=== PATIENT | female | born 1950 | race Caucasian/White ===

== ENCOUNTER → 2017-07-27 | Outpatient (CLI) | payer BC ==
[~2017-07-27] MED LIST: ASPI81TA28 PO; CALC600T14 PO; CHOL1000 PO; COEN1CAP17 PO; FISHOIL PO; REDCAP2 PO; curcumin; herbal supplement; juice plus
--- NOTE | 2017-07-27 10:53 | DIAGNOSTIC IMAGING REPORT ---
L ANKLE MIN 3 VIEWS ROUTINE CLINICAL HISTORY: 66 years-old Female presenting with S99.912A left ankle pain, fall 2 days ago. TECHNIQUE: Frontal, mortise, and lateral views of the left ankle were obtained. COMPARISON: None. FINDINGS: Ankle mortise intact. Obliquely oriented fracture of the distal fibular metaphysis at the level of the syndesmosis extending from the posterior lateral cortex proximally to the anterior medial cortex distally. There is 2 mm of diastases at the fracture plane. No convincing evidence of widening of the syndesmosis. No posterior malleolus are or medial malleoli fracture. Extensive soft tissue swelling most pronounced along the lateral malleolus. IMPRESSION: Findings consistent with Wallace B fibular fracture (stage II supination external rotation injury). Electronically signed by: Moe Caban M.D. 07/27/2017 10:52 AM Dictated Date/Time: 07/27/2017 10:49 AM
== END | disposition home or self-care (01) ==
LOC: C.RAD 09:58
PROVIDERS: ATTEND Nurse Practitioner
DX: S99.912A Unspecified injury of left ankle, initial encounter (principal); X58.XXXA Exposure to other specified factors, initial encounter

== ENCOUNTER → 2017-07-27 | Outpatient (CLI) | payer BC | END | disposition home or self-care (01) | LOC: C.RDSM 17:32 | PROVIDERS: ATTEND Physical Medicine & Rehabilitation Sports Medicine | DX: S82.832A Other fracture of upper and lower end of left fibula, initial encounter for closed fracture (principal); M25.562 Pain in left knee; X58.XXXA Exposure to other specified factors, initial encounter ==

== ENCOUNTER → 2017-08-05 | Outpatient (CLI) | payer BC | END | disposition home or self-care (01) | LOC: C.RDSM 13:31 | PROVIDERS: ATTEND Physical Medicine & Rehabilitation Sports Medicine | DX: S82.832A Other fracture of upper and lower end of left fibula, initial encounter for closed fracture (principal); X58.XXXA Exposure to other specified factors, initial encounter ==

== ENCOUNTER → 2017-09-08 | Outpatient (CLI) | payer BC | END | disposition home or self-care (01) | LOC: C.RDSM 07:15 | PROVIDERS: ATTEND Physical Medicine & Rehabilitation Sports Medicine | DX: S82.832A Other fracture of upper and lower end of left fibula, initial encounter for closed fracture (principal); X58.XXXA Exposure to other specified factors, initial encounter ==

== ENCOUNTER → 2017-12-14 | Outpatient (CLI) | payer BC | END | disposition home or self-care (01) | LOC: C.RDSM 10:00 | PROVIDERS: ATTEND Physical Medicine & Rehabilitation Sports Medicine | DX: S82.892A Other fracture of left lower leg, initial encounter for closed fracture (principal); X58.XXXA Exposure to other specified factors, initial encounter ==